=== PATIENT | female | born 1965 | race Caucasian/White ===

== ENCOUNTER 2023-01-28 09:12 | Day surgery (SDC) | payer OTHER ==
[~2023-01-28] VITALS: Ht 167.6 cm; Wt 101.2 kg
[~2023-01-28 09:12] MED LIST: ALPR.25 PO; AMLO10 PO; AVALIDE 300-121 EACH PO; ESTRADIOL1 MG PO; METF500 PO; METO100ER PO; PARO20 PO; POTCHL20ER PO; Ventolin5 MG/1 ML INH
--- NOTE | 2023-01-28 11:03 | NUR ---
01/28/23 1103 Zunilda Malave ARMS SECURED ON PADDED ARM BOARDS, PILLOW UNDER HEAD, LEFT HIP BUMP
--- NOTE | 2023-01-28 12:02 | NUR ---
01/28/23 1203 Marybel Khan UPON ARRIVAL TO PACU SPO2 88-90% ON RA. PT PLACED ON 10L O2 VIA FT AND SPO2 MAINTAINING AT 97-99%. TRIAL OF O2 AT 5L VIA FT.
[2023-01-28 12:49] VITALS: BP 115/65
== END 2023-01-28 12:54 | disposition home or self-care (01) ==
LOC: ORSCSDS 09:12
PROVIDERS: Podiatrist Foot & Ankle Surgery
PROC: 0LMW0ZZ Reattachment of Left Foot Tendon, Open Approach (ICD-10-PCS; principal; 2023-01-28 09:55)
PROC: 0QP104Z Removal of Internal Fixation Device from Sacrum, Open Approach (ICD-10-PCS; principal; 2023-01-28 09:55)
DX: S92.355P Nondisplaced fracture of fifth metatarsal bone, left foot, subsequent encounter for fracture with malunion (principal); I12.9 Hypertensive chronic kidney disease with stage 1 through stage 4 chronic kidney disease, or unspecified chronic kidney disease; E11.22 Type 2 diabetes mellitus with diabetic chronic kidney disease; N18.2 Chronic kidney disease, stage 2 (mild); E11.40 Type 2 diabetes mellitus with diabetic neuropathy, unspecified; Z87.891 Personal history of nicotine dependence; Z79.84 Long term (current) use of oral hypoglycemic drugs; Z79.899 Other long term (current) drug therapy; F41.8 Other specified anxiety disorders; E66.9 Obesity, unspecified; Z68.36 Body mass index [BMI] 36.0-36.9, adult
CPT/HCPCS: 82947; A9270; C1713; J1100; J1885; J2001; J2250; J2405; J2704; J3010; J7120